=== PATIENT | female | born 1980 | race Caucasian/White ===

== ENCOUNTER 2022-09-26 09:51 | Outpatient (REF) | payer OTHER, SELFPAY ==
[2022-09-26 11:38] LABS: Appearance Urine Clear; Color Urine Yellow; Glucose Urine UA Negative (Negative); Leukocyte Esterase Urine Negative (Negative); Nitrite Urine Negative (Negative); Specific Gravity - Urine <= 1.005 (1.005-1.025); Urine Blood Negative (Negative); Urine Ketones Negative (Negative); Urine Protein Negative (Neg-Trace)
[2022-09-26 11:40] LABS: Bacteria Urine None Seen (None Seen); Hyaline Casts Urine 0-2 /LPF (0-2); RBC Urine 0-2 /HPF (0-2); Squamous Epithelial Cell Urine 0-2 /HPF (0-2); WBC Urine 0-5 /HPF (0-5)
[2022-09-26 11:43] LABS: MANUAL DIFF FLAG NO
[2022-09-26 11:50] LABS: Basophils Absolute Auto 0.1 X10*3/uL (0.0-0.2); Basophils Percent Auto 1.1 % (0-2); Eosinophils Absolute Auto 0.6 X10*3/uL (0.0-0.4); Eosinophils Percent Auto 6.4 % (0-4); Hemoglobin 15.3 g/dl (12.0-16.0); Imm Gran Abs Auto 0.03 X10*3/uL (0.00-0.03); Imm Gran Pct Auto 0.3 % (0.0-0.4); Lymphocytes Absolute Auto 3.1 X10*3/uL (1.2-4.9); Lymphocytes Percent Auto 31.9 % (20-40); Mean Corpuscular HGB Conc 34.8 g/dl (31.0-35.0); Mean Corpuscular Hemoglobin 30.6 pg (27.0-33.0); Mean Platelet Volume 10.6 fL (9.4-12.3); Monocytes Absolute Auto 0.5 X10*3/uL (0.1-1.2); Monocytes Percent Auto 5.5 % (2-11); Neutrophils Absolute Auto 5.2 x10*3/uL (2.0-8.3); Neutrophils Percent Auto 54.8 % (45-73); Platelet Count 296 X10*3/uL (160-400); Red Cell Distribution Width 12.9 % (11.0-16.0); White Blood Count 9.6 X10*3/uL (4.8-10.8)
[2022-09-26 12:23] LABS: Alanine Aminotransferase 27 U/L (0-31); Albumin Level 4.3 g/dL (3.5-5.0); Alkaline Phosphatase 65 U/L (39-117); Anion Gap 9 (12-20); Aspartate Amino Transferase 15 U/L (5-31); Bilirubin Total 0.8 mg/dL (0.0-1.0); Blood Urea Nitrogen 9 mg/dL (9-16); Calcium 9.1 mg/dL (8.4-10.2); Carbon Dioxide 27 mmol/L (22-29); Chloride 107 mmol/L (96-108); Cholesterol 178 mg/dL; Estimated Glomerular Filt Rate > 60; Glucose Fasting 100 mg/dL (60-99); HDL Cholesterol 42 mg/dL; LDL Cholesterol Calculated 113 mg/dl; Potassium 4.9 mmol/L (3.3-5.1); Sodium 138 mmol/L (135-145); Total Protein 6.7 g/dL (6.5-8.0); Triglycerides 119 mg/dL
[2022-09-26 12:39] LABS: Vitamin D 25-OH Total 26.9 ng/mL (>30)
[2022-09-26 13:52] LABS: Free T4 (Free Thyroxine) 0.71 ng/dL (0.71-1.85)
== END 2022-09-26 09:52 | disposition home or self-care (01) ==
LOC: HO.HMGCLDS 09:51
PROVIDERS: PCP Internal Medicine; Visit Provider Internal Medicine
DX: Z00.00 Encounter for general adult medical examination without abnormal findings (principal); Z20.2 Contact with and (suspected) exposure to infections with a predominantly sexual mode of transmission
CPT/HCPCS: 36415; 80053; 80061; 81001; 82306; 84439; 84443; 85025

== ENCOUNTER 2022-12-20 12:17 | Outpatient (REF) | payer OTHER, SELFPAY | END 2022-12-20 12:18 | disposition home or self-care (01) | LOC: HO.HMGCLDS 12:17 | PROVIDERS: PCP Internal Medicine; Visit Provider Internal Medicine | DX: E03.9 Hypothyroidism, unspecified (principal) | CPT/HCPCS: 36415; 84439; 84443; 84481 ==

== ENCOUNTER 2023-04-08 11:11 | Outpatient (REF) | payer OTHER, SELFPAY ==
[2023-04-08 14:24] LABS: TSH reflex Free T4 7.78 uIU/mL (0.32-4.0)
[2023-04-08 15:12] LABS: Free T4 (Free Thyroxine) 0.93 ng/dL (0.71-1.85)
== END 2023-04-08 11:12 | disposition home or self-care (01) ==
LOC: HO.HMGCLDS 11:11
PROVIDERS: PCP Internal Medicine; Visit Provider Internal Medicine
DX: E03.9 Hypothyroidism, unspecified (principal)
CPT/HCPCS: 36415; 84439; 84443

== ENCOUNTER 2023-08-01 12:34 | Outpatient (AMB) | payer OTHER, SELFPAY ==
[2023-08-01 13:07] VITALS: BP 122/76; PULSE 89; O2SAT 98; BMI 42.9
--- NOTE | 2023-08-01 13:07 | MHC.PC.OV ---
Vital Signs 08/01/23 13:07 Height 5 ft 5 in Weight 258 lb BMI 42.9 BP 122/76 Blood Pressure Location Lt brachial Position Sitting Pulse 89 Pulse Source Pulse Oximeter Pulse Oximetry (%) 98 Oxygen Delivery Method Room Air Intake Visit Reasons: Personal Matter Intake Note: Pt is here today for a follow up visit to discuss some questions. Allergies No Known Allergies Allergy (Verified 08/01/23 13:07) Medication List - Last Reconciled 08/01/23 by Ilana Antonio MD levothyroxine 100 mcg PO DAILY Tobacco use date assessed: 08/01/23 Dental Screening Dental Screen Date: 08/01/23 Did you have a dental visit in the last 12 months?: Yes Did you have a dental problem in the last 6 months where you did not have access to dental care?: No Was dental information given to patient?: Patient has dentist HPI Personal Matter HPI Details Patient presents complaining of gaining weight despite trying to exercise regularly and cutting down on caloric intake. Patient used to follow weight watchers program and was able to lose some weight. Patient feels upset about her extra weight but denies depression. She feels overwhelmed at the time because of responsibilities of [employer] and and raising 2 children. She has been taking levothyroxine for hypothyroid PFSH Family History Father Diabetes Hypertension Mother No problems noted. Social History Housing: House Patient Tobacco Use Status: Current everyday Tobacco user Tobacco use type: Cigarette Cigarettes Per Day: 8 e-Cigarette/Vaping Use: Never Used Current occupational status: employed Cognitive needs: No Hearing needs: No Vision needs: No Questionnaire PHQ-9 Over the last 2 weeks, how often have you been bothered by any of the following problems? 1. Little interest or pleasure in doing things: not at all 2. Feeling down, depressed, or hopeless: several days 3. Trouble falling or staying asleep, or sleeping too much: not at all 4. Feeling tired or having little energy: more than half the days 5. Poor appetite or overeating: several days 6. Feeling bad about yourself - or that you are a failure or have let yourself or your family down: several days 7. Trouble concentrating on things, such as reading the newspaper or watching television: not at all 8. Moving or speaking so slowly that other people could have noticed. Or the opposite - being so fidgety or restless that you have been moving around a lot more than usual: not at all 9. Thoughts that you would be better off or of hurting yourself in some way: not at all Total score: 5 Depression Screening Interpretation: Negative Depression Screening Done: Yes Source: Developed by Drs. Adan Logan, Madeleine Keating, Allan Chambers and colleagues, with an educational srinivasa from [employer]. Thrive Questionnaire Date Thrive assessed: 08/01/23 I am a: Patient What is your living situation today?: I have a steady place to live Within the past 12 months, did the food you bought not last and you didn't have the money to get more?: Never true Within the past 12 months, did you worry whether your food would run out before you got money to buy more?: Never true Do you have trouble paying for medicines?: No Do you have trouble getting transportation to medical appointments?: No Do you have trouble paying your heating and electricity bill?: No Do you have trouble taking care of your child, family member or friend?: No Do you have trouble with day-to-day activities such as bathing, preparing meals, shopping, managing finances, etc.?: No Are you currently unemployed and looking for a job?: No Are you interested in more education?: No Please select the resources that you would like help with: None Currently or been in a relationship where the following occur: no concerns reported THRIVE Score: 0 AUDIT C Alcohol Use Questionnaire (AUDIT-C) 1. How often do you have a drink containing alcohol?: Monthly or less 2. How many drinks containing alcohol do you have on a typical day when you are drinking?: 1 or 2 3. How often do you have six or more drinks on one occasion?: Never Total Score: 1 ANDRE-7 AMB Questionnaire ANDRE-7 Date ANDRE - 7 assessed: 08/01/23 Feeling nervous, anxious, or on edge: 0 = Not at all Not being able to stop or control worryin = Not at all Worrying too much about different things: 0 = Not at all Trouble relaxin = Not at all Being so restless that it is hard to sit still: 0 = Not at all Becoming easily annoyed or irritable: 0 = Not at all Feeling afraid as if something awful might happen: 0 = Not at all Total ANDRE-7 score (0-4 normal; 5-9 mild; 10-14 moderate; 15-21 severe): 0 Source: Developed by Drs. Adan Logan, Madeleine Keating, Allan Chambers and colleagues, with an educational srinivasa from [employer]. Review of Systems Const All systems reviewed & are unremarkable except as noted in HPI and below Reports no additional complaints Eyes Reports no additional complaints ENT Reports no additional complaints Card Reports no additional complaints Resp Reports no additional complaints GI Reports no additional complaints Reports no additional complaints Physical exam (Primary Care) Vital Signs: Last Vital Signs Pulse 89 08/01/23 13:07 BP 122/76 08/01/23 13:07 Pulse Ox 98 08/01/23 13:07 Oxygen Delivery Method Room Air 08/01/23 13:07 BMI result Body Mass Index 42.9 Tobacco/Smoking Status: Tobacco use Status Tobacco use date assessed 08/01/23 08/01/23 13:08 Patient Tobacco Use Status Current everyday Tobacco 08/01/23 13:08 Tobacco use type Cigarette 08/01/23 13:08 e-Cigarette/Vaping Use Never Used 08/01/23 13:08 PHQ-9: PHQ-9 Score PHQ-9: Total score 5 08/01/23 13:28 Depression Screening Interpretation: Negative Thrive Assessment: Date of Thrive Assessment Date Thrive assessed 08/01/23 08/01/23 13:28 Currently or been in a relationship where the following occur: no concerns reported Const General: no acute distress HENMT Head: Yes normal to inspection Face and sinus: Yes normal facial exam Throat: Yes posterior oropharynx normal Neck Neck: Yes supple Resp Effort & Inspection: normal respiratory effort Auscultation: clear to auscultation bilaterally Cardio Rhythm: regular rhythm Heart sounds: S1 normal heart sound present and S2 normal heart sound present GI Inspection: Yes normal to inspection Assessment and Plan Assessment & Plan (1) Hypothyroidism: Code(s): E03.9 - Hypothyroidism, unspecified Plan: Continue levothyroxine patient will return for fasting blood work including TSH (2) Annual physical exam: Code(s): Z00.00 - Encounter for general adult medical examination without abnormal findings (3) Anxiety: Code(s): F41.9 - Anxiety disorder, unspecified Plan: Stress management discussed with the patient she will be referred to a counseling (4) Overweight: Code(s): E66.3 - Overweight Plan: Patient was advised to follow weight watchers program increase physical activity decrease caloric intake. Wegovy 0.25 mg will be started for the 1st month patient will follow-up after month to monitor her weight Orders: Orders Comprehensive [place]. Panel Fast Today E03.9 - Hypothyroidism, unspecified, Z00.00 - Encounter for general adult medical examination without abnormal findings Vitamin D 25-OH Total Today E03.9 - Hypothyroidism, unspecified, Z00.00 - Encounter for general adult medical examination without abnormal findings Lipid Panel Today E03.9 - Hypothyroidism, unspecified, Z00.00 - Encounter for general adult medical examination without abnormal findings Complete Blood Count Auto Diff Today E03.9 - Hypothyroidism, unspecified, Z00.00 - Encounter for general adult medical examination without abnormal findings TSH reflex Free T4 Today E03.9 - Hypothyroidism, unspecified, Z00.00 - Encounter for general adult medical examination without abnormal findings Referrals Counseling Referral F41.9 - Anxiety disorder, unspecified Medications: New Wegovy (semaglutide (weight loss)) administer weeks 1 through 4 of therapy 0.25 mg (0.5 mL) subcut QWEEK 2 mL 1RF NS Coding Level of Care Code Est Pt Level 4 (07738) Diagnoses Hypothyroidism E03.9 Annual physical exam Z00.00 Anxiety F41.9 Overweight E66.3
== END 2023-08-01 14:22 | disposition home or self-care (01) ==
PROVIDERS: PCP Internal Medicine; Visit Provider Internal Medicine
DX: E03.9 Hypothyroidism, unspecified (principal); Z00.00 Encounter for general adult medical examination without abnormal findings; F41.9 Anxiety disorder, unspecified; E66.3 Overweight
CPT/HCPCS: 99214

== ENCOUNTER 2023-08-15 09:00 | Outpatient (REF) | payer OTHER, SELFPAY ==
[2023-08-15 10:36] LABS: MANUAL DIFF FLAG NO
[2023-08-15 10:53] LABS: Basophils Absolute Auto 0.1 X10*3/uL (0.0-0.2); Basophils Percent Auto 0.9 % (0-2); Eosinophils Absolute Auto 0.5 X10*3/uL (0.0-0.4); Eosinophils Percent Auto 4.5 % (0-4); Hematocrit 44.6 % (37.0-47.0); Hemoglobin 15.6 g/dl (12.0-16.0); Imm Gran Abs Auto 0.06 X10*3/uL (0.00-0.03); Imm Gran Pct Auto 0.5 % (0.0-0.4); Lymphocytes Percent Auto 26.8 % (20-40); Mean Corpuscular Hemoglobin 30.5 pg (27.0-33.0); Mean Corpuscular Volume 87.3 fL (80.0-98.0); Mean Platelet Volume 10.1 fL (9.4-12.3); Monocytes Absolute Auto 0.7 X10*3/uL (0.1-1.2); Monocytes Percent Auto 6.1 % (2-11); Neutrophils Absolute Auto 6.8 x10*3/uL (2.0-8.3); Neutrophils Percent Auto 61.2 % (45-73); Platelet Count 354 X10*3/uL (160-400); Red Blood Count 5.11 X10*6/uL (4.20-5.50); Red Cell Distribution Width 12.2 % (11.0-16.0)
[2023-08-15 11:06] LABS: Alanine Aminotransferase 19 U/L (0-31); Albumin Level 4.3 g/dL (3.5-5.0); Alkaline Phosphatase 78 U/L (39-117); Anion Gap 13 (12-20); Aspartate Amino Transferase 15 U/L (5-31); Blood Urea Nitrogen 8 mg/dL (9-16); Calcium 9.7 mg/dL (8.4-10.2); Carbon Dioxide 25 mmol/L (22-29); Chloride 106 mmol/L (96-108); Cholesterol 170 mg/dL (<200); Estimated Glomerular Filt Rate > 60; Glucose Fasting 107 mg/dL (60-99); HDL Cholesterol 38 mg/dL (>40); LDL Cholesterol Calculated 104 mg/dL (<100); Sodium 140 mmol/L (135-145); Total Protein 7.8 g/dL (6.5-8.0); Triglycerides 140 mg/dL (<150)
[2023-08-15 11:11] LABS: TSH reflex Free T4 8.68 uIU/mL (0.32-4.0); Vitamin D 25-OH Total 23.8 ng/mL (>30)
[2023-08-15 12:01] LABS: Free T4 (Free Thyroxine) 0.98 ng/dL (0.71-1.85)
== END 2023-08-15 09:01 | disposition home or self-care (01) ==
LOC: HO.HMGCLDS 09:00
PROVIDERS: PCP Internal Medicine; Visit Provider Internal Medicine
DX: Z00.00 Encounter for general adult medical examination without abnormal findings (principal); E03.9 Hypothyroidism, unspecified
CPT/HCPCS: 36415; 80053; 80061; 82306; 84439; 84443; 85025

== ENCOUNTER 2023-11-25 11:16 | Outpatient (REF) | payer OTHER, SELFPAY ==
[2023-11-25 13:56] LABS: TSH reflex Free T4 3.94 uIU/mL (0.32-4.0); Vitamin D 25-OH Total 48.2 ng/mL (>30)
== END 2023-11-25 11:17 | disposition home or self-care (01) ==
LOC: HO.HMGCLDS 11:16
PROVIDERS: PCP Internal Medicine; Visit Provider Internal Medicine
DX: Z00.00 Encounter for general adult medical examination without abnormal findings (principal); E03.9 Hypothyroidism, unspecified
CPT/HCPCS: 36415; 82306; 84443

== ENCOUNTER 2024-06-22 13:17 | Outpatient (AMB) | payer OTHER, SELFPAY ==
[2024-06-22 13:19] VITALS: BP 96/60; PULSE 106; O2SAT 98; BMI 39.6
--- NOTE | 2024-06-22 13:19 | MHC.PC.OV ---
Vital Signs 06/22/24 13:19 Height 5 ft 5 in Weight 238 lb BMI 39.6 BP 96/60 Blood Pressure Location Rt brachial Position Sitting Pulse 106 H Pulse Source Pulse Oximeter Pulse Oximetry (%) 98 Oxygen Delivery Method Room Air Intake Visit Reasons: neck pain x 2weeks Intake Note: Pt is here today for a sick visit. Pt c/o neck pain for 3 weeks now. Pt states that she went to Urgent Care and was prescribed muscle relaxer but that is not helping. Allergies No Known Allergies Allergy (Verified 06/22/24 13:23) Medication List - Last Reconciled 06/22/24 by Ilana Antonio MD levothyroxine 112 mcg PO DAILY Tobacco use date assessed: 06/22/24 Dental Screening Dental Screen Date: 06/22/24 Did you have a dental visit in the last 12 months?: Yes Did you have a dental problem in the last 6 months where you did not have access to dental care?: No Was dental information given to patient?: Patient has dentist HPI neck pain x 2weeks HPI Details Patient complains of posterior neck pain started after patient was looking up hanging decorations. Pain is positional, worse in the morning. There is no pain radiating to extremities, weakness or numbness in upper extremities. She has been taking ibuprofen on and off and cyclobenzaprine with only temporary relief. [facility] Family History Father Diabetes Hypertension Mother No problems noted. Social History Housing: House Patient Tobacco Use Status: Current everyday Tobacco user Tobacco use type: Cigarette Cigarettes Per Day: 8 e-Cigarette/Vaping Use: Never Used service: No Current occupational status: employed Cognitive needs: No Hearing needs: No Vision needs: No Questionnaire PHQ-9 Over the last 2 weeks, how often have you been bothered by any of the following problems? 1. Little interest or pleasure in doing things: not at all 2. Feeling down, depressed, or hopeless: not at all 3. Trouble falling or staying asleep, or sleeping too much: not at all 4. Feeling tired or having little energy: several days 5. Poor appetite or overeating: several days 6. Feeling bad about yourself - or that you are a failure or have let yourself or your family down: not at all 7. Trouble concentrating on things, such as reading the newspaper or watching television: not at all 8. Moving or speaking so slowly that other people could have noticed. Or the opposite - being so fidgety or restless that you have been moving around a lot more than usual: not at all 9. Thoughts that you would be better off or of hurting yourself in some way: not at all Total score: 2 Depression Screening Interpretation: Negative Depression Screening Done: Yes 05789 - PHQ-9 Billing: Yes Source: Developed by Drs. Adan Logan, Madeleine Keating, Allan Chambers and colleagues, with an educational srinivasa from [email or web address]. Thrive Questionnaire Date Thrive assessed: 06/22/24 I am a: Patient What is your living situation today?: I have a steady place to live Within the past 12 months, did the food you bought not last and you didn't have the money to get more?: Never true Within the past 12 months, did you worry whether your food would run out before you got money to buy more?: Never true Do you have trouble paying for medicines?: No Do you have trouble getting transportation to medical appointments?: No Do you have trouble paying your heating and electricity bill?: No Do you have trouble taking care of your child, family member or friend?: No Do you have trouble with day-to-day activities such as bathing, preparing meals, shopping, managing finances, etc.?: No Are you currently unemployed and looking for a job?: No Are you interested in more education?: No Please select the resources that you would like help with: None Currently or been in a relationship where the following occur: No concerns reported THRIVE Score: 0 AUDIT C Alcohol Use Questionnaire (AUDIT-C) 1. How often do you have a drink containing alcohol?: Monthly or less 2. How many drinks containing alcohol do you have on a typical day when you are drinking?: 1 or 2 3. How often do you have six or more drinks on one occasion?: Less than monthly Total Score: 2 ANDRE-7 AMB Questionnaire ANDRE-7 Date ANDRE - 7 assessed: 06/22/24 Feeling nervous, anxious, or on edge: 1 = Several days Not being able to stop or control worryin = Several days Worrying too much about different things: 1 = Several days Trouble relaxin = Not at all Being so restless that it is hard to sit still: 0 = Not at all Becoming easily annoyed or irritable: 1 = Several days Feeling afraid as if something awful might happen: 0 = Not at all Total ANDRE-7 score (0-4 normal; 5-9 mild; 10-14 moderate; 15-21 severe): 4 Source: Developed by Drs. Adan Logan, Madeleine Keating, Allan Chambers and colleagues, with an educational srinivasa from [email or web address]. ANDRE-7 Assessment Billing ANDRE-7 Assessment Tool: ANDRE-7 Assessment 20848 Review of Systems Const All systems reviewed & are unremarkable except as noted in HPI and below ENT Reports no additional complaints Card Reports no additional complaints Resp Reports no additional complaints GI Reports no additional complaints Reports no additional complaints Physical exam (Primary Care) Vital Signs: Last Vital Signs Pulse 106 H 06/22/24 13:19 BP 96/60 06/22/24 13:19 Pulse Ox 98 06/22/24 13:19 Oxygen Delivery Method Room Air 06/22/24 13:19 BMI result Body Mass Index 39.6 Tobacco/Smoking Status: Tobacco use Status Tobacco use date assessed 06/22/24 06/22/24 13:26 Patient Tobacco Use Status Current everyday Tobacco 06/22/24 13:26 Tobacco use type Cigarette 06/22/24 13:26 e-Cigarette/Vaping Use Never Used 06/22/24 13:26 PHQ-9: PHQ-9 Score PHQ-9: Total score 2 06/22/24 13:26 Depression Screening Interpretation: Negative Thrive Assessment: Date of Thrive Assessment Date Thrive assessed 06/22/24 06/22/24 13:26 Currently or been in a relationship where the following occur: No concerns reported Const General: no acute distress HENMT Head: Yes normal to inspection Neck Other: There paraspinal tenderness in the lower cervical region decreased range of motion in C-spine, paraspinal muscle spasm Neck: Yes no lymphadenopathy and Yes supple Resp Effort & Inspection: normal respiratory effort Auscultation: clear to auscultation bilaterally Cardio Rhythm: regular rhythm Heart sounds: S1 normal heart sound present and S2 normal heart sound present Coding Level of Care Code Est Pt Level 3 (00951) Diagnoses Neck pain M54.2 Additional Codes ANDRE-7 Assessment Billing - ANDRE-7 Assessment Tool: ANDRE-7 Assessment 29679 ([id number]) PHQ-9 - 85881 - PHQ-9 Billing: Yes ([id number]) Assessment & Plan Assessment & Plan (1) Neck pain: Code(s): M54.2 - Cervicalgia Category: Medical Plan: Check x-ray of C-spine, baclofen and meloxicam are prescribed, supportive care and gentle neck stretches discussed with the patient. For persistent symptoms she will be referred to physical Orders: Orders XR cervical spine 2V Today M54.2 - Cervicalgia Medications: New baclofen 10 mg PO BID 30 tabs 0RF meloxicam 15 mg PO DAILY 14 tabs 0RF
--- OUTSIDE RECORDS SUMMARY | 2024-06-22 15:30 | XMS_ITS ---
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 Name Role Phone Franko Sigala [phone] ALLERGIES, ADVERSE REACTIONS, ALERTS Substance Code Code System Type Reaction Severity Status Start Date End Date No known non-drug allergies RxNorm Other substance crystal rgy () 1 No known allergies RxNorm Other substance allergy () 1 No known drug allergies RxNorm Other substance allergy () 1 MEDICATIONS Medication Code Code System Start Date Stop Date Route Dosage Directions Fill Instructions levothyroxine 0 RxNorm oral albuterol sulfate 943751 RxNorm 023 inhalation 3 albuterol sulfate 096850 RxNorm 08/16/19 24 inhalation 3 benzonatate 662118 RxNorm 023 oral 1 Zithromax Z-[place] 896331 RxNorm 023 2022 oral 2 Zithromax 367285 RxNorm 023 oral 1 benzonatate 628834 RxNorm 08/16/19 oral 1 prednisone 111592 RxNorm 023 oral 1 amoxicillin-pot clavulanate 262386 RxNorm 08/16/19 24 oral 1 cyclobenzaprine 030939 RxNorm 2023 oral 1 PROBLEMS Problem Name Code Code System Start Date End Date Stat us COVID-19, Screening Encounter 754068967 [facility] 07/06/2022 Inactive Fever [id number] [facility] 07/06/2022 Inactive Pharyngitis, strep 27740810 [facility] 07/06/2022 I nactive Hypothyroidism, unspecified 05764162 [facility] Active Unspecified asthma, uncomplicated 737252304 [facility] 01/03/2023 Resolved Pneumonia, unspecified organism 273863679 [facility] 3 Resolved Acute sinusitis, unspecified 60809260 [facility] 08/16/2023 Resolved Other muscle spasm 848988151883 [facility] 06/15/2024 Active Strain of muscle, fascia and tendon at neck level, initial encounter 059745355 [facility] 06/15/2024 Active ENCOUNTERS Encounter Diagnosis Code Code System Date Stat us Acute sinusitis, unspecified 81999346 [facility] Active IMMUNIZATIONS * None VITAL SIGNS Code Code System Vitals Name Date Value and Un its 8462-4 [facility] Blood Pressure-Diastolic 08/16/2023 90 mmHg 8480-6 [facility] Blood Pressure-Systolic 08/16/2023 1 41 mmHg 8867-4 [facility] Heart Rate 08/16/2023 96 /min 8310-5 [facility] Body Temperature 08/16/2023 97.6 F 72868-8 [facility] Oxygen Saturation 08/16/2023 97 % SOCIAL HISTORY * None PROCEDURES * None MEDICAL EQUIPMENT * Patient has no history of implantable devices ASSESSMENT * None TREATMENT PLAN Type Description Date MEDICATION Take 08/16/2023 MEDICATION Take 2.5 mg /3 mL (0.083 %) Solu tion for Nebulization 08/16/2023 MEDICATION Take 08/16/2023 ORDERS You have a sinus inf ection. The vast majority of sinus infections are viral and need time to resolve with the help of over the counter medications to reduce symptoms. Antibiotics are not prescribed for sinus symptoms of less than 2 weeks duration. If it has been determined that your infection is bacterial and would respond therefore to antibiotic treatment, take the antibiotic as prescribed. You should know that there is a lag time in response to the antibiotic when treating a sinus infection. It may be 3-5 days until you feel improvement in your symptoms. Failure to respond to the antibiotic provides confirmation that your symptoms are likely viral and will resolve on their own with time.Use over the counter Flonase until symptoms are resolved. You should also use over the counter Xlear or OceanMist Nasal Saline to irrigate the sinuses. You should do this a few times daily and again before bed. Take Tylenol and/or Motrin as needed for facial pain/fever. If you develop any severe headache, vomiting, neck stiffness, visual disturbance, or any other new, concerning symptoms please go directly to the nearest ER. 08/16/2023 APPOINTMENT If not feeling rupesh r in 3 day(s), please see your primary care physician. If you do not have a primary care physician, please return to this clinic. 08/16/2023 Lab Tests None GOALS * None HEALTH CONCERNS * No Health Concerns FUNCTIONAL AND COGNITIVE STATUS * None CONSULTATION NOTES * None DISCHARGE SUMMARY NOTES * None HISTORY AND PHYSICAL NOTES * Reason for visit - Illness IMAGING NOTES * None LABORATORY REPORT NARRATIVE NOTES * None PATHOLOGY REPORT NARRATIVE NOTES * None PROGRESS NOTES * None
--- OUTSIDE RECORDS SUMMARY | 2024-06-22 15:30 | XMS_ITS ---
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 Name Role Phone Sobeida Putnam Unavailable [phone] ALLERGIES, ADVERSE REACTIONS, ALERTS Substance Code Code System Type Reaction Severity Status Start Date End Date No known drug allergies RxNorm Other substance allergy () 1 No known non-drug allergies RxNorm Other substance crystal rgy () 1 No known allergies RxNorm Other substance allergy () 1 MEDICATIONS Medication Code Code System Start Date Stop Date Route Dosage Directions Fill Instructions levothyroxine 0 RxNorm oral albuterol sulfate 429703 RxNorm 023 inhalation 3 albuterol sulfate 936209 RxNorm 08/16/19 24 inhalation 3 benzonatate 406430 RxNorm 023 oral 1 Zithromax Z-Milton 120196 RxNorm 023 2022 oral 2 Zithromax 156244 RxNorm 023 oral 1 benzonatate 870431 RxNorm 08/16/19 oral 1 prednisone 545038 RxNorm 023 oral 1 amoxicillin-pot clavulanate 004473 RxNorm 08/16/19 24 oral 1 cyclobenzaprine 853217 RxNorm 2023 oral 1 PROBLEMS Problem Name Code Code System Start Date End Date Stat us COVID-19, Screening Encounter 005098294 [facility] 07/06/2022 Inactive Fever 143662389 [facility] 07/06/2022 Inactive Pharyngitis, strep 19834742 [facility] 07/06/2022 I nactive Hypothyroidism, unspecified 42165147 [facility] Active Unspecified asthma, uncomplicated 899675454 [facility] 01/03/2023 Resolved Pneumonia, unspecified organism 099059666 [facility] Resolved Acute sinusitis, unspecified 28547303 [facility] 08/16/2023 Resolved Other muscle spasm 141522882874 [facility] 06/15/2024 Active Strain of muscle, fascia and tendon at neck level, initial encounter 252847675 [facility] 06/15/2024 Active ENCOUNTERS Encounter Diagnosis Code Code System Date Stat us Unspecified asthma, uncomplicated 638028822 [facility] Active Pneumonia, unspecified organism 947868788 [facility] 01/03 Active IMMUNIZATIONS * None VITAL SIGNS Code Code System Vitals Name Date Value and Un its 8462-4 [facility] Blood Pressure-Diastolic 01/03/2023 79 mmHg 8480-6 [facility] Blood Pressure-Systolic 01/03/2023 1 18 mmHg 8867-4 [facility] Heart Rate 01/03/2023 90 /min 9279-1 [facility] Respiratory Rate 01/03/2023 18 /min 8310-5 inc Body Temperature 01/03/2023 99.8 F 39471-2 [facility] Oxygen Saturation 01/03/2023 90 % SOCIAL HISTORY * None PROCEDURES Code Code System Procedure Date Status Notes 73560 Cpt4 Administer Nebul izer Treatment 01/03/2023 completed Franko Jovon - 01/03/2023 O2 Saturation: 94%.Nebulizer session 1: Medication: Albuterol, 1 unit dose (3mL of 0.083% solution), brand name: ALBUTEROL SULFATE, NDC #: 3417-2344-00.Patient was observed for 15 minutes. Patient tolerated procedure well. Patient left room without difficulty.Patient tolerated procedure well.patient tolerated procedure well, Patient reports subjective improvement. Improved air movement on lung exam. Decreased wheezing noted. J7613 Cpt4 Administer Nebul izer Treatment 01/03/2023 completed Franko Jovon - 01/03/2023 O2 Saturation: 94%.Nebulizer session 1: Medication: Albuterol, 1 unit dose (3mL of 0.083% solution), brand name: ALBUTEROL SULFATE, NDC #: 9264-9927-87.Patient was observed for 15 minutes. Patient tolerated procedure well. Patient left room without difficulty.Patient tolerated procedure well.patient tolerated procedure well, Patient reports subjective improvement. Improved air movement on lung exam. Decreased wheezing noted. 97149 Cpt4 Pulse Oximetry 01/03/2023 completed Franko Sigala - 01/03/2023 oxygen saturation at 92% by pulse oximetry, patient on room air. A4620 Cpt4 Oxygen, supplemental 01/03/2023 completed Leslee Ortiz - 01/03/2023 4 L/min, by mask. J7613 Cpt4 Albuterol (suppl y, not administered-No Admin) 01/03/2023 completed Leslee Ortiz - 01/03/2023 Supplied: 1 unit dose (3 mL of 0.083% solution). Expiration date: 11/16/2023. 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 [facility] #: [id number].Patient was observed for 15 minutes. Patient tolerated procedure well. A4620 Cpt4 Oxygen Mask 01/03/2023 completed RESULTS Test Code Code System Description Result Value Date Ref erence Range [facility] SARS-CoV-2 NEGATIVE 01/03/2023 [facility] Flu A NEGATIVE 01/03/2023 [facility] Flu B NEGATIVE 01/03/2023 [facility] RSV NEGATIVE 01/03/2023 MEDICAL EQUIPMENT * Patient has no history of implantable devices ASSESSMENT * None TREATMENT PLAN Type Description Date MEDICATION Take 2.5 mg /3 mL (0.083 %) Solu tion for Nebulization 01/03/2023 MEDICATION Take 50 mg tablet 01/03/2023 MEDICATION Take 250 mg tablet 01/03/2023 MEDICATION Take 200 mg capsule 01/05/2023 APPOINTMENT If not feeling rupesh r in 3 day(s), please see your primary care physician. If you do not have a primary care physician, please return to this clinic. 01/03/2023 Labs Tests Test Name Code Code System Date SARS-CoV-2, Flu A/B, RSV Mul tiplex Assay, Amplified Probe Molecular RT-PCR / NAAT 44583 CPT 01/03/2023 SARS-CoV-2, Flu A/B, RSV Mul tiplex Assay, Amplified Probe Molecular RT-PCR / NAAT 77509 CPT 01/03/2023 GOALS * None HEALTH CONCERNS * No Health Concerns FUNCTIONAL AND COGNITIVE STATUS * None CONSULTATION NOTES * None DISCHARGE SUMMARY NOTES * None HISTORY AND PHYSICAL NOTES * Reason for visit - Illness IMAGING NOTES * /Eastern History: Cough-Chest: The patient presents with a chief complaint of cough of the chest. It has thefollowing quality: productive of sputum. The patient also reports congestion and shortness of breath as abnormal symptoms related to the complaint. Abnormal Exams: General: Abnormality noted, appearshealthy, appears stated age, distressed, anxious, overweight, well groomed, good eye contact, no involuntary body movement. Respiratory: breathing is observed to be abnormal, Able to speak in complete sentences but sounds breathless. Respiratory: respiratory distress noted., increased work of breathing noted, in mild respiratory distress, no use of accessory muscles, no retractions, normal chest expansion during breathing. Respiratory: abnormal breath sounds on auscultation., Lung sounds: normal volume of breath sounds, vesicular breath sounds, no rales, no rhonchi, no rubs, wheezing noted, moderate wheezing, diffusely over bilateral lung lai.ExaminationDescription: Chest xray, frontal and lateral viewsComparisons:None provided. FindingsThe cardiomediastinal silhouette is within normallimits. There are peribronchial markings in both lungs suggesting asthma or bronchitisPatchy infiltrate in the left lung baseNo pleural effusions are seen.There is no pneumothorax present. The soft tissue and osseous structures appear unremarkable.IMPRESSION:1. There are peribronchial markings in both lungs suggesting asthma or bronchitis2. Patchy infiltrate in the left lung base LABORATORY REPORT NARRATIVE NOTES * None PATHOLOGY REPORT NARRATIVE NOTES * None PROGRESS NOTES * None
--- OUTSIDE RECORDS SUMMARY | 2024-06-22 15:30 | XMS_ITS ---
Author Organization [facility] Address [address] [place] [address] Care Team Providers Care Rn Military Name Role Phone Franko Sigala [phone] ALLERGIES, ADVERSE REACTIONS, ALERTS Substance Code Code System Type Reaction Severity Status Start Date End Date No known allergies RxNorm Other substance allergy () 1 No known drug allergies RxNorm Other substance allergy () 1 No known non-drug allergies RxNorm Other substance crystal rgy () 1 MEDICATIONS Medication Code Code System Start Date Stop Date Route Dosage Directions Fill Instructions levothyroxine 0 RxNorm oral albuterol sulfate 174918 RxNorm 023 inhalation 3 albuterol sulfate 603377 RxNorm 08/16/19 24 inhalation 3 benzonatate 996402 RxNorm 023 oral 1 Zithromax Z-Milton 674713 RxNorm 023 2022 oral 2 Zithromax 112449 RxNorm 023 oral 1 benzonatate 473511 RxNorm 08/16/19 oral 1 prednisone 591043 RxNorm 023 oral 1 amoxicillin-pot clavulanate 147930 RxNorm 08/16/19 24 oral 1 cyclobenzaprine 539953 RxNorm 2023 oral 1 PROBLEMS Problem Name Code Code System Start Date End Date Stat us COVID-19, Screening Encounter 961405924 [facility] 07/06/2022 Inactive Fever 521388108 [facility] 07/06/2022 Inactive Pharyngitis, strep 42459574 [facility] 07/06/2022 I nactive Hypothyroidism, unspecified 02613806 [facility] Active Unspecified asthma, uncomplicated 622030584 [facility] 01/03/2023 Resolved Pneumonia, unspecified organism 157415751 [facility] Resolved Acute sinusitis, unspecified 88398627 [facility] 08/16/2023 Resolved Other muscle spasm 282587053115 [facility] 06/15/2024 Active Strain of muscle, fascia and tendon at neck level, initial encounter 793749655 [facility] 06/15/2024 Active ENCOUNTERS Encounter Diagnosis Code Code System Date Stat us Other muscle spasm 085582776169 [facility] 06/15/2024 Acti ve Strain of muscle, fascia and tendon at neck level, initial encounter 720961538 [facility] 06/15/2024 Ac tive IMMUNIZATIONS * None VITAL SIGNS Code Code System Vitals Name Date Value and Un its 8462-4 [facility] Blood Pressure-Diastolic 06/15/2024 86 mmHg 8480-6 [facility] Blood Pressure-Systolic 06/15/2024 1 37 mmHg 8867-4 [facility] Heart Rate 06/15/2024 73 /min 9279-1 [facility] Respiratory Rate 06/15/2024 16 /min 8310-5 [facility] Body Temperature 06/15/2024 98.0 F 57663-5 [facility] Oxygen Saturation 06/15/2024 97 % SOCIAL HISTORY * None PROCEDURES * None MEDICAL EQUIPMENT * Patient has no history of implantable devices ASSESSMENT * None TREATMENT PLAN Type Description Date MEDICATION Take 5 mg tablet 06/15/2024 ORDERS 1. Apply heat for 15 to 20 minutes 4-5 times a day2. Massage the tight muscles after heat3. Do neck exercises to prevent further spasm and to loosen tight muscles.4. If symptoms do not improve with continued conservative treatment in the next 2 to 3 days you should discuss referral to physical therapy with your PCP5. Go to the emergency department for any escalating symptoms especially with any numbness, weakness or swvy-bdu-fkehwdr in your upper extremities 06/15/2024 APPOINTMENT If not feeling rupesh r in 3 day(s), please see your primary care physician. If you do not have a primary care physician, please return to this clinic. 06/15/2024 Lab Tests None GOALS * None HEALTH CONCERNS * No Health Concerns FUNCTIONAL AND COGNITIVE STATUS * None CONSULTATION NOTES * None DISCHARGE SUMMARY NOTES * None HISTORY AND PHYSICAL NOTES * Reason for visit - Injury Patient: JONI YO, Sex: F (ID# [id number]) Date of : 1980 (44 years) Visit on 06/15/2024 (Log# [id number]) Historian: Self Triage Notes: tweaked neck moving elf on the shelf last week History of Present Illness: Patient reports she tweaked her neck muscles about 1 week ago. She has been using conservative treatment at home and has seen a massage therapist with no relief of her symptoms. She has been applying heat and sometimes ice. She has been doing ibuprofen for inflammation and pain relief. Patient denies prior neck injury. She denies any upper extremity numbness weakness or paresthesias. Complaint: The patient presents with a chief complaint of pain of the posterior aspect of neck, left side of neck, and right side of neck since 1 week ago. Context - Initial History: The patient reports it was the result of an injury that occurred on 06/08/2024, which was not work related. This is not the result of a motor vehicle accident. The patient reports that the onset was: not associated with blunt force trauma; not associated with recent illness; not associated with recent procedure; not associated with exertion; not associated with lifting heavy object; not associated with prolonged standing/walking; not associated with poor posture; not associated with injection; not associated with bite. The patient also reports muscle pain as an abnormal symptom related to the complaint. Review of Systems: The patient complains of the following recent symptoms: Constitutional: pain: See HPI Musculoskeletal: muscle pain The patient denies the following recent symptoms: Musculoskeletal: denies swelling Skin: denies bruised skin Allergies: patient specifies no known allergies Medications: levothyroxine: levothyroxine; (oral) days; 0 refill(s); Problem List: Hypothyroidism, unspecified (status Active) Surgeries: patient specifies no surgeries Social History: Tobacco Use: Current every day smoker. Alcohol: drinks rarely (2 or less drinks per week). Family History: patient specifies no conditions Preventive Measures: patient specifies all up-to-date Vitals: 05:42 PM (06/15/2024)Temperature: 98.0 ?F, Pulse: 73 BPM, BP: 137/86, Respirations: 16/min, O2 Saturation: 97%, O2 Delivery: RAFirst entered 06/15/2024 17:42 by Gabriele Gerardo Physical Exam: The following exam elements were documented to be abnormal: Muscular: reduced range of motion of neck noted. neck supple, flexion normal, extension normal, lateral flexion normal, lateral rotation normal, Minimally decreased range of motion. Muscular: abnormality of spine noted. Right paraspinal: spasm of cervical muscles noted, tenderness of cervical muscles noted, diffusely,no spasm of thoracic muscles, no tenderness of thoracic muscles, no spasm of lumbar muscles, no tenderness of lumbar muscles, no spasm of sacral muscles, no tenderness of sacral muscles. Midline spinal: no midline cervical tenderness, no midline thoracic tenderness, no midline lumbar tenderness, no midline sacral tenderness, no tenderness of coccyx to palpation. Left paraspinal: spasm of cervical muscles noted, tenderness of cervical muscles noted, diffusely, no spasm of thoracic muscles, no tenderness of thoracic muscles, no spasm of lumbar muscles, no tenderness of lumbar muscles, no spasm of sacral muscles, no tenderness of sacral muscles. The following exam elements were documented to be normal: General: well developed, well nourished, and in no apparent distress. Muscular: no midline spinal tenderness. Diagnoses: Other muscle spasm (M62.838) Strain of muscle, fascia and tendon at neck level, initial encounter (S16.1XXA) Medication Orders: Prescribed: cyclobenzaprine 5 mg tablet; Take 1 tablet (oral) 3 times per day for 5 days; Total Qty: 15 (fifteen) tablet; 0 refill(s); Substitutions allowed; Earliest Fill Date: 06/15/2024ePrescribedat 6:04 PM on 06/15/2024 by GEREMIAS Hernandes-CPrescription sent to [id number] (P: [phone] F: [phone]) [address] [place] [address], [phone] Discharge Instructions: Muscle Cramps and Spasms Cervical Strain and Sprain Rehab Neck Exercises Plan: If not feeling better in 3 day(s), please see your primary care physician. If you do not have a primary care physician, please return to this clinic. 1. Apply heat for 15 to 20 minutes 4-5 times a day 2. Massage the tight muscles after heat 3. Do neck exercises to prevent further spasm and to loosen tight muscles. 4. If symptoms do not improve with continued conservative treatment in the next 2 to 3 days you should discuss referral to physical therapy with your PCP 5. Go to the emergency department for any escalating symptoms especially with any numbness, weakness or zcid-iup-rnkqcho in your upper extremities Visit discharged at 06/15/2024 6:08:29 PM by Franko Sigala PA-C Signed electronically by Franko Sigala PA-C on 06/15/2024 6:08:29 PM IMAGING NOTES * None LABORATORY REPORT NARRATIVE NOTES * None PATHOLOGY REPORT NARRATIVE NOTES * None PROGRESS NOTES * None
== END 2024-06-22 13:59 | disposition home or self-care (01) ==
PROVIDERS: PCP Internal Medicine; Visit Provider Internal Medicine
DX: M54.2 Cervicalgia (principal)

== ENCOUNTER 2024-06-22 13:17 | Outpatient (REF) | payer OTHER, SELFPAY ==
--- NOTE | ~2024-06-22 | XR_ITS ---
EXAMINATION: XR CERVICAL SPINE 2-3 VIEWS HISTORY: M54.2 - Cervicalgia COMPARISON: There are no prior studies for comparison. FINDINGS: AP and lateral views of the cervical spine are submitted. Osseous mineralization is normal. Seven cervical vertebral bodies are identified maintaining normal height and alignment without evidence of fracture or subluxation. The intervertebral disc spaces are preserved. The odontoid and lateral masses of C1 are intact. There is no prevertebral soft tissue swelling. XR/XR cervical spine 2V IMPRESSION: Unremarkable examination of the cervical spine. Electronically signed by: Adan Geronimo MD 06/25/2024 09:34 AM EST
--- OUTSIDE RECORDS SUMMARY | 2024-06-22 16:16 | XMS_ITS ---
Author Organization [facility] Address [address] [place] [address] Care Team Providers Care Mailroom Clerk Name Role Phone Franko Sigala [phone] ALLERGIES, ADVERSE REACTIONS, ALERTS Substance Code Code System Type Reaction Severity Status Start Date End Date No known drug allergies RxNorm Other substance allergy () 1 No known allergies RxNorm Other substance allergy () 1 No known non-drug allergies RxNorm Other substance crystal rgy () 1 MEDICATIONS Medication Code Code System Start Date Stop Date Route Dosage Directions Fill Instructions levothyroxine 0 RxNorm oral albuterol sulfate 781754 RxNorm 023 inhalation 3 albuterol sulfate 150404 RxNorm 08/16/19 24 inhalation 3 benzonatate 930041 RxNorm 023 oral 1 Zithromax Z-Milton 930864 RxNorm 023 2022 oral 2 Zithromax 492305 RxNorm 023 oral 1 benzonatate 550344 RxNorm 08/16/19 oral 1 prednisone 964386 RxNorm 023 oral 1 amoxicillin-pot clavulanate 891287 RxNorm 08/16/19 24 oral 1 cyclobenzaprine 803350 RxNorm 2023 oral 1 PROBLEMS Problem Name Code Code System Start Date End Date Stat us COVID-19, Screening Encounter 070361159 [facility] 07/06/2022 Inactive Fever 483455742 [facility] 07/06/2022 Inactive Pharyngitis, strep 49233846 [facility] 07/06/2022 I nactive Hypothyroidism, unspecified 68912241 [facility] Active Unspecified asthma, uncomplicated 638041648 [facility] 01/03/2023 Resolved Pneumonia, unspecified organism 868166838 [facility] Resolved Acute sinusitis, unspecified 42106244 [facility] 08/16/2023 Resolved Other muscle spasm 701700817444 [facility] 06/15/2024 Active Strain of muscle, fascia and tendon at neck level, initial encounter 348738923 [facility] 06/15/2024 Active ENCOUNTERS Encounter Diagnosis Code Code System Date Stat us Other muscle spasm 803058967730 [facility] 06/15/2024 Acti ve Strain of muscle, fascia and tendon at neck level, initial encounter 507933386 [facility] 06/15/2024 Ac tive IMMUNIZATIONS * None VITAL SIGNS Code Code System Vitals Name Date Value and Un its 8462-4 [facility] Blood Pressure-Diastolic 06/15/2024 86 mmHg 8480-6 [facility] Blood Pressure-Systolic 06/15/2024 1 37 mmHg 8867-4 [facility] Heart Rate 06/15/2024 73 /min 9279-1 [facility] Respiratory Rate 06/15/2024 16 /min 8310-5 [facility] Body Temperature 06/15/2024 98.0 F 95156-6 [facility] Oxygen Saturation 06/15/2024 97 % SOCIAL [...] symptoms especially with any numbness, weakness or vadv-rta-ottnciq in your upper extremities 06/15/2024 APPOINTMENT If [...] Injury Patient: JONI YO, Sex: F (ID# [id number]) Date of : 1980 (44 years) Visit on 06/15/2024 (Log# [id number]) Historian: Self Triage Notes: tweaked neck moving [...] on 06/15/2024 by GEREMIAS Hernandes-CPrescription sent to [facility] #[id number] (P: [phone] F: [phone]) [address] [place] [address], [phone] Discharge Instructions: Muscle Cramps and Spasms Cervical [...] symptoms especially with any numbness, weakness or wiez-qbp-hfsvcdm in your upper extremities Visit discharged at 06/15/2024 6:08:29 PM by Franko Sigala PA-C Signed electronically by Franko Sigala PA-C on 06/15/2024 6:08:29 PM IMAGING NOTES * None LABORATORY REPORT NARRATIVE NOTES * None PATHOLOGY REPORT NARRATIVE NOTES * None PROGRESS NOTES * None
--- OUTSIDE RECORDS SUMMARY | 2024-06-22 16:16 | XMS_ITS ---
Author Organization [facility] Address [address] [place] [address] Care Team Providers Care Claim Analyst Name Role Phone Franko Sigala [phone] ALLERGIES, ADVERSE REACTIONS, ALERTS Substance Code Code System Type Reaction Severity Status Start Date End Date No known allergies RxNorm Other substance allergy () 1 No known non-drug allergies RxNorm Other substance crystal rgy () 1 No known drug allergies RxNorm Other substance allergy () 1 MEDICATIONS Medication Code Code System Start Date Stop Date Route Dosage Directions Fill Instructions levothyroxine 0 RxNorm oral albuterol sulfate 681409 RxNorm 023 inhalation 3 albuterol sulfate 701276 RxNorm 08/16/19 24 inhalation 3 benzonatate 827480 RxNorm 023 oral 1 Zithromax Z-Milton 832931 RxNorm 023 2022 oral 2 Zithromax 081165 RxNorm 023 oral 1 benzonatate 553477 RxNorm 08/16/19 oral 1 prednisone 685601 RxNorm 023 oral 1 amoxicillin-pot clavulanate 457025 RxNorm 08/16/19 24 oral 1 cyclobenzaprine 833503 RxNorm 2023 oral 1 PROBLEMS Problem Name Code Code System Start Date End Date Stat us COVID-19, Screening Encounter 150380590 [facility] 07/06/2022 Inactive Fever 098949808 [facility] 07/06/2022 Inactive Pharyngitis, strep 15405642 [facility] 07/06/2022 I nactive Hypothyroidism, unspecified 13993506 [facility] Active Unspecified asthma, uncomplicated 978711189 [facility] 01/03/2023 Resolved Pneumonia, unspecified organism 658870841 [facility] 3 Resolved Acute sinusitis, unspecified 44480282 [facility] 08/16/2023 Resolved Other muscle spasm 890146615543 [facility] 06/15/2024 Active Strain of muscle, fascia and tendon at neck level, initial encounter 980411142 [facility] 06/15/2024 Active ENCOUNTERS Encounter Diagnosis Code Code System Date Stat us Acute sinusitis, unspecified 26697442 [facility] Active IMMUNIZATIONS * None VITAL SIGNS Code Code System Vitals Name Date Value and Un its 8462-4 [facility] Blood Pressure-Diastolic 08/16/2023 90 mmHg 8480-6 [facility] Blood Pressure-Systolic 08/16/2023 1 41 mmHg 8867-4 [facility] Heart Rate 08/16/2023 96 /min 8310-5 [facility] Body Temperature 08/16/2023 97.6 F 14067-5 [facility] Oxygen Saturation 08/16/2023 97 % SOCIAL [...]
--- OUTSIDE RECORDS SUMMARY | 2024-06-22 16:16 | XMS_ITS ---
Author Organization [facility] Address [address] [place] [address] Care Team Providers Care Customer Agent Name Role Phone Sobeida Putnam Unavailable [phone] ALLERGIES, ADVERSE REACTIONS, ALERTS Substance Code Code [...] Instructions levothyroxine 0 RxNorm oral albuterol sulfate 535744 RxNorm 023 inhalation 3 albuterol sulfate 884963 RxNorm 08/16/19 24 inhalation 3 benzonatate 788222 RxNorm 023 oral 1 Zithromax Z-[place] 434149 RxNorm 023 2022 oral 2 Zithromax 041733 RxNorm 023 oral 1 benzonatate 270375 RxNorm 08/16/19 oral 1 prednisone 085549 RxNorm 023 oral 1 amoxicillin-pot clavulanate 834029 RxNorm 08/16/19 24 oral 1 cyclobenzaprine 653979 RxNorm 2023 oral 1 PROBLEMS Problem Name Code Code System Start Date End Date Stat us COVID-19, Screening Encounter 296512445 [facility] 07/06/2022 Inactive Fever 774114124 [facility] 07/06/2022 Inactive Pharyngitis, strep 51216896 [facility] 07/06/2022 I nactive Hypothyroidism, unspecified 61662256 [facility] Active Unspecified asthma, uncomplicated 734278572 [facility] 01/03/2023 Resolved Pneumonia, unspecified organism 821342107 [facility] Resolved Acute sinusitis, unspecified 89121909 [facility] 08/16/2023 Resolved Other muscle spasm 060595627841 [facility] 06/15/2024 Active Strain of muscle, fascia and tendon at neck level, initial encounter 389213479 [facility] 06/15/2024 Active ENCOUNTERS Encounter Diagnosis Code Code System Date Stat us Unspecified asthma, uncomplicated 588112955 [facility] Active Pneumonia, unspecified organism 889177978 [facility] 01/03 Active IMMUNIZATIONS * None VITAL SIGNS Code Code System Vitals Name Date Value and Un its 8462-4 [facility] Blood Pressure-Diastolic 01/03/2023 79 mmHg 8480-6 [facility] Blood Pressure-Systolic 01/03/2023 1 18 mmHg 8867-4 [facility] Heart Rate 01/03/2023 90 /min 9279-1 [facility] Respiratory Rate 01/03/2023 18 /min 8310-5 inc Body Temperature 01/03/2023 99.8 F 16640-1 [facility] Oxygen Saturation 01/03/2023 90 % SOCIAL HISTORY * None PROCEDURES Code Code System Procedure Date Status Notes 30597 Cpt4 Administer Nebul izer Treatment 01/03/2023 completed Franko Jovon - 01/03/2023 O2 Saturation: 94%.Nebulizer session 1: Medication: Albuterol, 1 unit dose (3mL of 0.083% solution), brand name: ALBUTEROL SULFATE, NDC #: 6008-2774-46.Patient was observed for 15 minutes. Patient tolerated [...] solution), brand name: ALBUTEROL SULFATE, NDC #: 1913-5372-60.Patient was observed for 15 minutes. Patient tolerated procedure well. Patient left room without difficulty.Patient tolerated procedure well.patient tolerated procedure well, Patient reports subjective improvement. Improved air movement on lung exam. Decreased wheezing noted. 04038 Cpt4 Pulse Oximetry 01/03/2023 completed Franko Sigala - 01/03/2023 oxygen saturation at 92% by pulse oximetry, patient on room air. A4620 Cpt4 Oxygen, supplemental 01/03/2023 completed Leslee Ortiz - 01/03/2023 4 L/min, by mask. J7613 Cpt4 Albuterol (suppl y, not administered-No Admin) 01/03/2023 completed Leslee Ortiz - 01/03/2023 Supplied: 1 unit dose (3 mL of 0.083% solution). Expiration date: 11/16/2023. Pulverizer Tender lot #: [id number]. [facility] #: [id number].Patient was observed for 15 minutes. Patient tolerated [...] Assay, Amplified Probe Molecular RT-PCR / NAAT 48207 CPT 01/03/2023 SARS-CoV-2, Flu A/B, RSV [place] tip[place] Assay, Amplified Probe Molecular RT-PCR / NAAT 74239 CPT 01/03/2023 GOALS * None HEALTH CONCERNS [...]
== END 2024-06-22 13:18 | disposition home or self-care (01) ==
LOC: HO.HMGCX 13:17
PROVIDERS: PCP Internal Medicine; Visit Provider Internal Medicine
DX: M54.2 Cervicalgia (principal)
CPT/HCPCS: 72040; 96127

== ENCOUNTER → 2024-06-22 13:56 | Outpatient (BNV) | payer OTHER, SELFPAY | PROVIDERS: PCP Internal Medicine; Visit Provider Radiology Diagnostic Radiology | DX: M54.2 Cervicalgia (principal) | CPT/HCPCS: 72040 ==